=== PATIENT | male | born 1970 | race Caucasian/White ===

== ENCOUNTER → 2016-11-13 | Outpatient (CLI) | payer BC ==
[2016-11-13 20:36] LABS: Non-African American GFR(MDRD) >60 (>60 ml/min/1.73 sqM)
--- NOTE | 2016-11-13 23:17 | MR ---
EXAMINATION TYPE: MR brain and iac wo/w con DATE OF EXAM: 11/13/2016 COMPARISON: NONE HISTORY: Dizziness, tinnitus, and headache per order. Ringing in ears per patient. TECHNIQUE: Multiplanar, multisequence images of the brain and brainstem is performed without and with IV contras t, utilizing 11.5 mL intravenous Gadavist . Additional imaging of the internal auditory canals is per formed. FINDINGS: Diffusion weighted images demonstrate no evidence of a recent infarct or other diffusion ab normality. There is no worrisome extra-axial fluid collection. The ventricular system and cisternal spaces are normal in size and appearance. The brain volume is age appropriate. There are few scatte red foci of T2 hyperintensity seen throughout the white matter bilaterally. Approximately 4-7 scatter ed lesions are felt present. For reference 4 mm left parietal periventricular lesion on axial image 1 8 is noted. Lesions are nonspecific in appearance and distribution. Midline structures demonstrate normal morphology. The craniocervical junction appears within normal limits. Post contrast images demonstrate no abnormal enhancement. The dural venous sinuses appear pa tent. There is mild mucosal thickening in inferior maxillary sinuses bilaterally. Remainder paranasal sinuses are clear. Globes are intact bilaterally. There is no suspicious fluid signal seen in mastoid air cells bilaterally. Vestibulocochlear complexe s are symmetric and felt within normal limits. No suspicious enhancing cerebellopontine angle mass is identified bilaterally. IMPRESSION: 1. No significant finding is seen to account for patient's symptoms of dizziness, hearing loss, and t innitus. 2. Mild to minimal nonspecific white matter changes are present. There is mild chronic maxillary sinu s disease otherwise unremarkable study.
== END | disposition home or self-care (01) ==
LOC: RADMRIMAIN 20:07
PROVIDERS: ATTEND Otolaryngology
DX: R51 Headache (principal); R42 Dizziness and giddiness
CPT/HCPCS: 82565; 70553; 36415; A9581

== ENCOUNTER → 2017-03-26 | Outpatient (CLI) | payer BC ==
--- NOTE | 2017-03-26 13:15 | CT ---
EXAMINATION TYPE: CT angio head neck DATE OF EXAM: 03/26/2017 HISTORY: Headache and Dizziness COMPARISON: NONE CT DLP: 375 mGycm. Automated Exposure Control for Dose Reduction was Utilized. TECHNIQUE: CTA scan of the neck is performed with IV Contrast, patient injected with 65 mL of Omnipa que 350, axial images are obtained, coronal and sagittal reformatted images are reviewed. Three-D rec onstructed images are created on an independent workstation and reviewed. FINDINGS: Carotid/Vascular Structures: There is a normal anatomic branch pattern of the great vessels. There is no hemodynamically significant stenosis within either common carotid, external carotid, or internal carotid artery. The vertebral arteries are patent and the left vertebral artery is dominant. There is no evidence of arterial dissection, focal aneurysmal outpouching, or occlusion. Although the posterior communicating arteries are diminutive there are seen bilaterally and therefore the nondal[place] of Rahman is intact. No abnormal vasculature is seen intracranially. No arterial venous malformations or developmental venous anomalies are identified. Evaluation of the intracranial structures is somew hat limited given arterial/angiographic phase. No midline shift is seen. Other: Solitary prominent 1.0 cm short axis right submandibular lymph node is seen on series 7 image 49. Remainder the lymph nodes within the head and neck are nonenlarged/not prominent. Mild mucosal thickening is seen within the maxillary and ethmoid sinuses. There is leftward nasal sep garth deviation. The remaining paranasal sinuses and mastoid air cells are well aerated. IMPRESSION: 1. No evidence of vascular occlusion, stenosis, dissection, or aneurysmal outpouching within the head or neck. 2. Solitary prominent 1 mm short axis right submandibular lymph node. Given the lack of other adenopa thy within the head or neck this may be reactive. Short-term follow-up ultrasound could be performed in 3 months for surveillance. 3. Mild paranasal sinus disease and leftward nasal septal deviation are incidentally seen.
== END | disposition home or self-care (01) ==
LOC: RADCTMAIN 10:45
PROVIDERS: ATTEND Psychiatry & Neurology Neurology
DX: R51 Headache (principal)
CPT/HCPCS: 70496; 70498; Q9967

== ENCOUNTER → 2023-03-28 | Outpatient (CLI) | payer OTHER ==
--- NOTE | 2023-03-28 14:30 | XR ---
EXAMINATION TYPE: XR chest 2V DATE OF EXAM: 03/28/2023 COMPARISON: NONE TECHNIQUE: PA and lateral views submitted. HISTORY: Cough FINDINGS: The lungs are clear and there is no pneumothorax, pleural effusion, or focal pneumonia. Heart size normal and no overt failure. Osseous structures demonstrate hypertrophic and degenerative changes of the spine. Pleural-based thickening. Reduced inspiration. IMPRESSION: 1. No acute process.
== END | disposition home or self-care (01) ==
LOC: RADXRYALE 13:43
PROVIDERS: ATTEND Internal Medicine
DX: R05.1 Acute cough (principal)
CPT/HCPCS: 71046

== ENCOUNTER → 2023-04-12 | Outpatient (CLI) | payer OTHER ==
--- NOTE | 2023-04-12 14:01 | CT ---
EXAMINATION TYPE: CT chest w con DATE OF EXAM: 04/12/2023 COMPARISON: None HISTORY: SOB, Chronic cough since February CT DLP: 733 mGycm Automated exposure control for dose reduction was used. TECHNIQUE: CT scan of the chest is performed with IV Contrast, patient injected with 100 mL of Isovue 300. MIP Images are created on CT scanner and reviewed. 3D reconstructed images are created on an independent workstation and reviewed. FINDINGS: There is a small focal area of reticular nodular "tree in bud" densities in the lower lobes bilateral ly There is no airspace consolidation. There is no pleural effusion or pneumothorax. The great vessels chest are normal and no mediastinal, hilar or axillary adenopathy. Scanning in the upper abdomen reveals mild fatty infiltration of liver. No focal osseous lesions are seen. IMPRESSION: 1. Small focal area of tree-in-bud density or reticulonodular density in the lower lobes bilaterally. 2. Mild fatty infiltration liver. 3. No mediastinal, hilar or axillary adenopathy. 4. No airspace consolidation, pleural effusion or pneumothorax.
== END | disposition home or self-care (01) ==
LOC: RADCTMAIN 12:50
PROVIDERS: ATTEND Internal Medicine
DX: K76.0 Fatty (change of) liver, not elsewhere classified (principal); J98.4 Other disorders of lung
CPT/HCPCS: 71260; Q9967